=== PATIENT | female | born 1975 | race Caucasian/White ===

== ENCOUNTER 2020-07-13 08:23 | Emergency (ER) | payer OTHER ==
[2020-07-13 08:37] VITALS: TEMP 98; BMI 28.8
[2020-07-13 10:11] VITALS: BP 141/61; PULSE 80
== END 2020-07-13 10:10 | disposition home or self-care (01) ==
LOC: JER 08:23
DX: U07.1 COVID-19 (principal)
CPT/HCPCS: 71046-TC-FY; 99284-25